=== PATIENT | female | born 1930 | race Caucasian/White ===

== ENCOUNTER 2018-05-20 18:15 | Emergency (ER) | payer MEDICARE, OTHER ==
[~2018-05-20] VITALS: Ht 165.1 cm; Wt 58.5 kg
[2018-05-20] MEDS ORDERED: LISINOPRIL20 MG PO (18:29)
[2018-05-20] MEDS ORDERED: CARDIZEM CD120 MG PO (18:29)
[2018-05-20] MEDS ORDERED: XARELTO15 MG PO (18:29)
[2018-05-20] MEDS ORDERED: LOPRESSOR50 PO (18:29)
[2018-05-20] MEDS ORDERED: ICAPS TABLET1 EACH PO (18:30)
[2018-05-20] MEDS ORDERED: SYMBICORT160 MCG/4. INH (18:30)
[2018-05-20] MEDS ORDERED: ALLEGRA ALLERG180 MG PO (18:30)
[2018-05-20] MEDS ORDERED: ALEVE220 MG PO (18:30)
[2018-05-20 21:38] VITALS: BP 152/68
== END 2018-05-20 21:38 | disposition home or self-care (01) ==
LOC: M.ERS 18:15
DX: S01.81XA Laceration without foreign body of other part of head, initial encounter (principal); I10 Essential (primary) hypertension; J44.9 Chronic obstructive pulmonary disease, unspecified; I48.91 Unspecified atrial fibrillation; Z88.0 Allergy status to penicillin; W01.0XXA Fall on same level from slipping, tripping and stumbling without subsequent striking against object, initial encounter; Y93.89 Activity, other specified; Y92.481 Parking lot as the place of occurrence of the external cause; Y99.8 Other external cause status

== ENCOUNTER 2018-05-25 11:07 | Emergency (ER) | payer MEDICARE, OTHER ==
[~2018-05-25] VITALS: Ht 165.1 cm; Wt 58.5 kg
[~2018-05-25 11:07] MED LIST: ALEVE220 MG PO; ALLEGRA ALLERG180 MG PO; CARDIZEM CD120 MG PO; ICAPS TABLET1 EACH PO; LISINOPRIL20 MG PO; LOPRESSOR50 PO; SYMBICORT160 MCG/4. INH; XARELTO15 MG PO
[2018-05-25 14:45] VITALS: BP 140/65
== END 2018-05-25 14:46 | disposition home or self-care (01) ==
LOC: M.ERS 11:07
DX: S00.83XA Contusion of other part of head, initial encounter (principal); R29.810 Facial weakness; I10 Essential (primary) hypertension; I48.91 Unspecified atrial fibrillation; J44.9 Chronic obstructive pulmonary disease, unspecified; Z88.0 Allergy status to penicillin; W01.198A Fall on same level from slipping, tripping and stumbling with subsequent striking against other object, initial encounter; Y93.89 Activity, other specified; Y92.89 Other specified places as the place of occurrence of the external cause; Y99.8 Other external cause status

== ENCOUNTER 2021-08-06 14:02 | Emergency (ER) | payer OTHER ==
[~2021-08-06] VITALS: Ht 165.1 cm; Wt 54.4 kg
[2021-08-06] MEDS ORDERED: CEPHALEXIN500 MG PO (15:41)
[2021-08-06 16:12] VITALS: BP 145/55
== END 2021-08-06 16:14 | disposition home or self-care (01) ==
LOC: M.ERS 14:02
DX: S01.81XA Laceration without foreign body of other part of head, initial encounter (principal); S46.922A Laceration of unspecified muscle, fascia and tendon at shoulder and upper arm level, left arm, initial encounter; I10 Essential (primary) hypertension; J44.9 Chronic obstructive pulmonary disease, unspecified; I48.91 Unspecified atrial fibrillation; Z79.01 Long term (current) use of anticoagulants; Z88.0 Allergy status to penicillin; W01.198A Fall on same level from slipping, tripping and stumbling with subsequent striking against other object, initial encounter; Y93.89 Activity, other specified; Y92.89 Other specified places as the place of occurrence of the external cause; Y99.8 Other external cause status

== ENCOUNTER 2021-08-28 16:56 | Emergency (ER) | payer OTHER ==
[~2021-08-28] VITALS: Ht 165.1 cm; Wt 55.3 kg
[~2021-08-28 16:56] MED LIST changes: +CEPHALEXIN500 MG PO
[2021-08-28] MEDS ORDERED: BACTRIM DS TAB1 EAC1 PO (19:02)
[2021-08-28 19:16] VITALS: BP 164/67
== END 2021-08-28 19:17 | disposition home or self-care (01) ==
LOC: M.ERS 16:56
DX: S80.11XA Contusion of right lower leg, initial encounter (principal); L03.115 Cellulitis of right lower limb; I48.91 Unspecified atrial fibrillation; J44.9 Chronic obstructive pulmonary disease, unspecified; I10 Essential (primary) hypertension; Z79.899 Other long term (current) drug therapy; Z88.0 Allergy status to penicillin; W17.4XXA Fall from dock, initial encounter; Y93.89 Activity, other specified; Y92.89 Other specified places as the place of occurrence of the external cause; Y99.8 Other external cause status